=== PATIENT | female | born 1985 | race Caucasian/White ===

== ENCOUNTER 2022-03-24 17:26 | Emergency (ER) | payer OTHER ==
[~2022-03-24] VITALS: Ht 167.6 cm; Wt 89.4 kg
[~2022-03-24 17:26] MED LIST: ANAPROX DS550 MG PO; BACID CAPLET1 EACH PO; CLARITIN10 M2 PO; KEFLEX500 MG PO; NORCO 5-325 TA1 EACH PO; PRENATAL MULTI1 EACH PO; PRILOSEC20 MG PO; VICOPROFEN 2001 EACH PO
--- OUTSIDE RECORDS SUMMARY | 2022-03-24 17:30 | XMS ---
PreManage Notification: PAYAL DAN Security Bone Cooking Operator Events No recent Security Events currently on file CRITERIA MET - Group Notification CARE PROVIDERS There are no care providers on record at this time. Ollie has no Care Guidelines for this patient. Win VISIT COUNT (12 MO.) 1 BRAD[facility] Weiss TOTAL 1 NOTE: Visits indicate total known visits. ED/C VISIT TRACKING (12 MO.) 03/24/2022 17:28 [facility] [place] TYPE: Emergency COMPLAINT: - R FOOT AND ANKLE PAIN INPATIENT VISIT TRACKING (12 MO.) No inpatient visits to display in this time frame [id number]
[2022-03-24] MEDS ORDERED: MELOXICAM15 MG PO (20:34)
[2022-03-24] MEDS ORDERED: CYCLOBENZAPRINE10 MG PO (20:34)
== END 2022-03-24 21:16 | disposition home or self-care (01) ==
LOC: ED 17:26
DX: M77.51 Other enthesopathy of right foot and ankle (principal); J45.909 Unspecified asthma, uncomplicated; Z87.891 Personal history of nicotine dependence; Z88.8 Allergy status to other drugs, medicaments and biological substances; Z88.0 Allergy status to penicillin
CPT/HCPCS: 73610; 96372; 99283-25; J1885

== ENCOUNTER 2022-04-23 19:10 | Emergency (ER) | payer OTHER ==
[~2022-04-23] VITALS: Ht 167.6 cm; Wt 89.4 kg
[~2022-04-23 19:10] MED LIST changes: +CYCLOBENZAPRINE10 MG PO; +MELOXICAM15 MG PO
--- OUTSIDE RECORDS SUMMARY | 2022-04-23 19:14 | XMS ---
PreManage Notification: PAYAL DAN Security Sample Driller Events No recent Security Events currently on file CRITERIA MET - [facility] - 2 Visits in 30 Days - Group Notification CARE PROVIDERS There are no care providers on record at this time. Ollie has no Care Guidelines for this patient. [facility] (12 MO.) [facility] NOTE: Visits indicate total known visits. ED/C VISIT TRACKING (12 MO.) 04/23/2022 19:11 [facility] [place] [facility] COMPLAINT: - L LEG PAIN 03/24/2022 17:[address] [facility] [place] TYPE: Emergency COMPLAINT: - R FOOT AND ANKLE PAIN DIAGNOSES: - Pain in right ankle and joints of right foot - Personal history of nicotine dependence - Unspecified asthma, uncomplicated - Allergy status to penicillin - Other enthesopathy of right foot and ankle - Allergy status to other drugs, medicaments and biological substances INPATIENT VISIT TRACKING (12 MO.) No inpatient visits to display in this time frame [email or web address]
[2022-04-23] MEDS ORDERED: CYCLOBENZAPRINE10 MG PO (20:37)
== END 2022-04-23 21:06 | disposition home or self-care (01) ==
LOC: ED 19:10
DX: S86.911A Strain of unspecified muscle(s) and tendon(s) at lower leg level, right leg, initial encounter (principal); X58.XXXA Exposure to other specified factors, initial encounter; J45.909 Unspecified asthma, uncomplicated; Z87.891 Personal history of nicotine dependence; Z88.8 Allergy status to other drugs, medicaments and biological substances; Z88.1 Allergy status to other antibiotic agents; Z88.0 Allergy status to penicillin; Z79.899 Other long term (current) drug therapy
CPT/HCPCS: 36415; 85379; 99283

== ENCOUNTER 2023-04-17 22:20 | Emergency (ER) | payer OTHER ==
[~2023-04-17] VITALS: Ht 167.6 cm; Wt 97.0 kg
--- OUTSIDE RECORDS SUMMARY | 2023-04-17 22:23 | XMS ---
PreManage Notification: PAYAL DAN Security Digital Media Sales Consultant Events No recent Security Events currently on file CRITERIA MET - Group Notification CARE PROVIDERS -[place]- Dentist: Ecotherapist [facility] PHONE: [phone] -Alex- Dentist: Ecotherapist [facility] PHONE: [phone] Ollie has no Care Guidelines for this patient. Win VISIT COUNT (12 MO.) 2 BRADLEY Weiss TOTAL 2 NOTE: Visits indicate total known visits. ED/UCC VISIT TRACKING (12 MO.) 04/17/2023 22:20 [facility] [place] TYPE: Emergency COMPLAINT: - LT WRIST PAIN 04/23/2022 19:11 [facility] [place] TYPE: Emergency COMPLAINT: - L LEG PAIN/NO INJURY DIAGNOSES: - Allergy status to other antibiotic agents - Allergy status to other drugs, medicaments and biological substances - Allergy status to penicillin - Exposure to other specified factors, initial encounter - Other alf (current) drug therapy - Pain in right leg - Personal history of nicotine dependence - Strain of unspecified muscle(s) and tendon(s) at lower leg level, right leg, initial encounter - Unspecified asthma, uncomplicated INPATIENT VISIT TRACKING (12 MO.) No inpatient visits to display in this time frame [email or web address]
[2023-04-18 01:59] VITALS: BP 139/87
== END 2023-04-18 02:01 | disposition home or self-care (01) ==
LOC: ED 22:20
DX: S63.92XA Sprain of unspecified part of left wrist and hand, initial encounter (principal); W22.8XXA Striking against or struck by other objects, initial encounter; Z88.8 Allergy status to other drugs, medicaments and biological substances; Z88.0 Allergy status to penicillin; Z79.899 Other long term (current) drug therapy; Z87.891 Personal history of nicotine dependence
CPT/HCPCS: 73110; 99283-25; A9270

== ENCOUNTER 2023-04-20 20:56 | Emergency (ER) | payer OTHER ==
[~2023-04-20] VITALS: Ht 167.6 cm; Wt 96.6 kg
--- OUTSIDE RECORDS SUMMARY | 2023-04-20 21:06 | XMS ---
PreManage Notification: PAYAL DAN Security Art Department Head Events No recent Security Events currently on file CRITERIA MET - Group Notification - [facility] - 2 Visits in 30 Days CARE PROVIDERS -[place]- Dentist: Calender Supervisor [facility] PHONE: [phone] -Alex- Dentist: Calender Supervisor [facility] PHONE: [phone] Ollie has no Care Guidelines for this patient. EMohsen VISIT COUNT (12 MO.) 3 [facility] TOTAL 3 NOTE: Visits indicate total known visits. ED/UCC VISIT TRACKING (12 MO.) 04/20/2023 20:[facility] [place] TYPE: Emergency COMPLAINT: - LT WRIST PAIN 04/17/2023 22:20 [facility] [place] TYPE: Emergency COMPLAINT: - LT WRIST PAIN DIAGNOSES: - Allergy status to other drugs, medicaments and biological substances - Allergy status to penicillin - Other water hauler (current) drug therapy - Pain in left wrist - Personal history of nicotine dependence - Sprain of unspecified part of left wrist and hand, initial encounter - Striking against or struck by other objects, initial encounter 04/23/2022 19:11 [facility] [place] TYPE: Emergency COMPLAINT: - L LEG PAIN/NO INJURY DIAGNOSES: - Allergy status to other antibiotic agents - Allergy status to other drugs, medicaments and biological substances - Allergy status to penicillin - Exposure to other specified factors, initial encounter - Other water hauler (current) drug therapy - Pain in right leg - Personal history of nicotine dependence - Strain of unspecified muscle(s) and tendon(s) at lower leg level, right leg, initial encounter - Unspecified asthma, uncomplicated INPATIENT VISIT TRACKING (12 MO.) No inpatient visits to display in this time frame [id number]
[2023-04-21 03:43] VITALS: BP 135/85
== END 2023-04-21 03:47 | disposition home or self-care (01) ==
LOC: ED 20:56
DX: S60.212A Contusion of left wrist, initial encounter (principal); W22.8XXA Striking against or struck by other objects, initial encounter; J45.909 Unspecified asthma, uncomplicated; Z87.891 Personal history of nicotine dependence; Z88.0 Allergy status to penicillin; Z88.8 Allergy status to other drugs, medicaments and biological substances; Z79.899 Other long term (current) drug therapy
CPT/HCPCS: 99283-25

== ENCOUNTER 2023-11-25 19:02 | Emergency (ER) | payer OTHER ==
[~2023-11-25] VITALS: Ht 167.6 cm; Wt 100.0 kg
--- OUTSIDE RECORDS SUMMARY | 2023-11-25 19:10 | XMS ---
PreManage Notification: PAYAL DAN Security Prepared Foods Service Team Member Events No recent Security Events currently on file CRITERIA MET - Group Notification CARE PROVIDERS -[facility] Dentist: Employment Manager Current [place] PHONE: [phone] -[place]- Dentist: Employment Manager [facility] PHONE: [phone] -Alex- Dentist: Employment Manager [facility] PHONE: [phone] PAYAL SEQUEIRA Physician Boiler Fireman Current PHONE: Unknown [facility]ERS [facility] \F\ Center (FQ) [facility] PHONE: [phone] Ollie has no Care Guidelines for this patient. Win VISIT COUNT (12 MO.) [address] [facility] [facility] Quint[facility] TOTAL 3 NOTE: Visits indicate total known visits. ED/UCC VISIT TRACKING (12 MO.) 11/25/2023 19:03 [facility] Blumony [place] Te[place] TYPE: Emergency COMPLAINT: - RIGHT ARM PAIN 04/20/2023 20:57 [facility] [place] TYPE: Emergency COMPLAINT: - LT WRIST PAIN DIAGNOSES: - Allergy status to other drugs, medicaments and biological substances - Allergy status to penicillin - Contusion of left wrist, initial encounter - Other jail (current) drug therapy - Pain in left wrist - Personal history of nicotine dependence - Striking against or struck by other objects, initial encounter - Unspecified asthma, uncomplicated 04/17/2023 22:20 [facility] [place] TYPE: Emergency COMPLAINT: - LT WRIST PAIN DIAGNOSES: - Allergy status to other drugs, medicaments and biological substances - Allergy status to penicillin - Other launch leader (current) drug therapy - Pain in left wrist - Personal history of nicotine dependence - Sprain of unspecified part of left wrist and hand, initial encounter - Striking against or struck by other objects, initial encounter INPATIENT VISIT TRACKING (12 MO.) No inpatient visits to display in this time frame [id number]
[2023-11-25 20:50] VITALS: BP 139/87
== END 2023-11-25 20:51 | disposition home or self-care (01) ==
LOC: ED 19:02
DX: M77.11 Lateral epicondylitis, right elbow (principal); Z87.891 Personal history of nicotine dependence; Z88.0 Allergy status to penicillin; Z88.8 Allergy status to other drugs, medicaments and biological substances
CPT/HCPCS: 73080

== ENCOUNTER 2024-03-15 12:09 | Emergency (ER) | payer OTHER ==
[~2024-03-15] VITALS: Ht 167.6 cm; Wt 93.7 kg
--- OUTSIDE RECORDS SUMMARY | 2024-03-15 12:16 | XMS ---
PreManage Notification: PAYAL DAN Security Manager Administrative Events No recent Security Events currently on file CRITERIA MET - Group Notification CARE PROVIDERS -[facility] Dentist: Parcel Post Officer Current [place] PHONE: [phone] -[place]- Dentist: Parcel Post Officer [facility] PHONE: [phone] -Alex- Dentist: Parcel Post Officer [facility] PHONE: [phone] PAYAL SEQUEIRA Physician Armor Reconnaissance Vehicle Driver Current PHONE: Unknown [facility] Current WORKERS CLINIC \F\ Center (FQ) [facility] PHONE: [phone] Ollie has no Care Guidelines for this patient. Win VISIT COUNT (12 MO.) [address] [facility] Quint[facility] TOTAL 4 NOTE: Visits indicate total known visits. ED/UCC VISIT TRACKING (12 MO.) 03/15/2024 12:09 [facility] RamiresWarren Tejada [place] TYPE: Emergency COMPLAINT: - BEE STING 11/25/2023 19:[address] [facility] [place]War[facility] Te[place]ada [place] TYPE: Emergency COMPLAINT: - RIGHT ARM PAIN DIAGNOSES: - Allergy status to other drugs, medicaments and biological substances - Allergy status to penicillin - Lateral epicondylitis, right elbow - Pain in right elbow - Personal history of nicotine dependence 04/20/2023 20:57 [facility] [place] HWarren Te[place] TYPE: Emergency COMPLAINT: - LT WRIST PAIN DIAGNOSES: - Allergy status to other drugs, medicaments and biological substances - Allergy status to penicillin - Contusion of left wrist, initial encounter - Other intermediate (current) drug therapy - Pain in left wrist - Personal history of nicotine dependence - Striking against or struck by other objects, initial encounter - Unspecified asthma, uncomplicated 04/17/2023 22:[address] [facility] [place] [place] TYPE: Emergency COMPLAINT: - LT WRIST PAIN DIAGNOSES: - Allergy status to other drugs, medicaments and biological substances - Allergy status to penicillin - Other adjunct faculty for medical terminology (current) drug therapy - Pain in left wrist - Personal history of nicotine dependence - Sprain of unspecified part of left wrist and hand, initial encounter - Striking against or struck by other objects, initial encounter INPATIENT VISIT TRACKING (12 MO.) No inpatient visits to display in this time frame [id number]
[2024-03-15] MEDS ORDERED: OMEPRAZOLE20 MG PO (12:30)
[2024-03-15] MEDS ORDERED: VENTOLIN HFA18 GM INH (12:30)
[2024-03-15] MEDS ORDERED: CLARITIN10 M2 PO (12:31)
[2024-03-15] MEDS ORDERED: predniSONE 20 MG TAB PO ONE (12:45)
[2024-03-15] MEDS ORDERED: FAMOTIDINE 20 MG TAB PO ONE (12:45)
[2024-03-15] MEDS ORDERED: KETOROLAC TROMETHAMINE 60 MG/2 ML VIAL IM ONE (12:45)
[2024-03-15] MEDS ORDERED: KETOROLAC TROME10 MG PO (13:25)
[2024-03-15] MEDS ORDERED: PEPCID20 MG PO (13:25)
[2024-03-15] MEDS ORDERED: PREDNISONE20 MG PO (13:25)
[2024-03-15 13:35] VITALS: BP 127/78
== END 2024-03-15 13:35 | disposition home or self-care (01) ==
LOC: ED 12:09
DX: T63.441A Toxic effect of venom of bees, accidental (unintentional), initial encounter (principal); R22.31 Localized swelling, mass and lump, right upper limb; J45.909 Unspecified asthma, uncomplicated; Z87.891 Personal history of nicotine dependence; Z88.0 Allergy status to penicillin; Z88.8 Allergy status to other drugs, medicaments and biological substances; Z79.899 Other long term (current) drug therapy
CPT/HCPCS: 96372; 99282-25; J1885; J7512

== ENCOUNTER 2024-03-31 09:21 | Emergency (ER) | payer OTHER ==
[~2024-03-31] VITALS: Ht 167.6 cm; Wt 91.7 kg
[~2024-03-31 09:21] MED LIST changes: +KETOROLAC TROME10 MG PO; +OMEPRAZOLE20 MG PO; +PEPCID20 MG PO; +PREDNISONE20 MG PO; +VENTOLIN HFA18 GM INH
--- OUTSIDE RECORDS SUMMARY | 2024-03-31 09:26 | XMS ---
PreManage Notification: PAYAL DAN Security Security Analyst Events No recent Security Events currently on file CRITERIA MET - Group Notification - [facility] - 2 Visits in 30 Days CARE PROVIDERS -[facility] Dentist: Camera Maker Current PHONE: [phone] -[place]- Dentist: Camera Maker Current [facility] PHONE: [phone] -Alex- Dentist: Camera Maker [facility] PHONE: [phone] PAYAL SEQUEIRA Physician Cold Header Operator Current PHONE: Unknown [facility] Current WORKERS CLINIC \[facility] (FQ) [facility] PHONE: [phone] Ollie has no Care Guidelines for this patient. Win VISIT COUNT (12 MO.) 5 BRADLEY Weiss TOTAL 5 NOTE: Visits indicate total known visits. ED/UCC VISIT TRACKING (12 MO.) 03/31/2024 09:22 BRADLEY Blumony [place] Te[place] TYPE: Emergency COMPLAINT: - RT ANKLE INJURY 03/15/2024 12:09 [facility] [place] TYPE: Emergency COMPLAINT: - BEE STING DIAGNOSES: - Allergy status to other drugs, medicaments and biological substances - Allergy status to penicillin - Localized swelling, mass and lump, right upper limb - Other shelter (current) drug therapy - Personal history of nicotine dependence - Toxic effect of venom of bees, accidental (unintentional), initial encounter - Unspecified asthma, uncomplicated 11/25/2023 19:03 [facility] [place] TYPE: Emergency COMPLAINT: - RIGHT ARM PAIN DIAGNOSES: - Allergy status to other drugs, medicaments and biological substances - Allergy status to penicillin - Lateral epicondylitis, right elbow - Pain in right elbow - Personal history of nicotine dependence 04/20/2023 20:57 [facility] [place] TYPE: Emergency COMPLAINT: - LT WRIST PAIN DIAGNOSES: - Allergy status to other drugs, medicaments and biological substances - Allergy status to penicillin - Contusion of left wrist, initial encounter - Other shelter (current) drug therapy - Pain in left wrist - Personal history of nicotine dependence - Striking against or struck by other objects, initial encounter - Unspecified asthma, uncomplicated 04/17/2023 22:20 [facility] [place] TYPE: Emergency COMPLAINT: - LT WRIST PAIN DIAGNOSES: - Allergy status to other drugs, medicaments and biological substances - Allergy status to penicillin - Other termite renewal inspector (current) drug therapy - Pain in left wrist - Personal history of nicotine dependence - Sprain of unspecified part of left wrist and hand, initial encounter - Striking against or struck by other objects, initial encounter INPATIENT VISIT TRACKING (12 MO.) No inpatient visits to display in this time frame [id number]
[2024-03-31 10:56] VITALS: BP 131/99
== END 2024-03-31 10:57 | disposition home or self-care (01) ==
LOC: ED 09:21
DX: S93.401A Sprain of unspecified ligament of right ankle, initial encounter (principal); X50.1XXA Overexertion from prolonged static or awkward postures, initial encounter; J45.909 Unspecified asthma, uncomplicated; Z87.891 Personal history of nicotine dependence; Z88.8 Allergy status to other drugs, medicaments and biological substances; Z88.0 Allergy status to penicillin; Z79.899 Other long term (current) drug therapy
CPT/HCPCS: 73610; 99283